=== PATIENT | female | born 1990 | race Caucasian/White ===

== ENCOUNTER 2018-10-03 17:12 | Emergency (ER) | payer SELFPAY ==
[2018-10-03] MEDS ORDERED: Sodium Chloride 0.9% 10 ML Syringe FLUSH PRN (17:39)
--- NOTE | 2018-10-03 17:39 | EDM.PDOC ---
ED HPI GENERAL MEDICAL PROBLEM - General Chief Complaint: Gastrointestinal Problem Stated Complaint: 2MOS VOMITING Time Seen by Provider: 10/03/18 17:19 Source of Information: Reports: Patient, RN Notes Reviewed History Limitations: Reports: No Limitations - History of Present Illness INITIAL COMMENTS - FREE TEXT/NARRATIVE: Patient is a 28 year old female who presents to the ED with her family for the evaluation of nausea/vomiting x 2 days. The patient states that she is around 2 months and her OB doctor is Dr. Lo. She tried to contact her office regarding the nausea but she was not in the office, and was told to come to ED. She does have ODT Zofran at home and this has worked well in the past. She did try to take 8mg ODT Zofran before arrival to ED but it did not stay down. She notes that she has not been able to keep anything for food or liquid down in the past 48 hours. She notes that she feels slight dizziness/ lightheadedness from time to time. She denies having ingested any questionable foods. She does not think she has lost any weight with this. She states that she still does have her appendix and gallbladder. She notes that she has some mild side aches due to the retching from the vomiting. She further denies any sick contacts or any other URI type symptoms like cough, runny nose, shortness of breath, or fever/chills. - Related Data Allergies Allergy/AdvReac Type Severity Reaction Status Date / Time No Known Allergies Allergy Verified 10/03/18 17:23 Home Meds: Home Meds Ondansetron [Zofran ODT] 8 mg PO Q6H PRN 10/03/18 [History] Past Medical History - Past Health History Medical/Surgical History: Denies Medical/Surgical History Social & Family History - Tobacco Use Smoking Status *Q: Never Smoker - Caffeine Use Caffeine Use: Reports: Coffee - Recreational Drug Use Recreational Drug Use: No ED ROS GENERAL - Review of Systems Review Of Systems: See Below Constitutional: Denies: Fever, Chills, Decreased Appetite, Weight Loss HEENT: Reports: No Symptoms Respiratory: Reports: No Symptoms Cardiovascular: Reports: No Symptoms Endocrine: Reports: No Symptoms GI/Abdominal: Reports: Constipation, Nausea, Vomiting. Denies: Diarrhea : Reports: No Symptoms Musculoskeletal: Reports: No Symptoms Skin: Reports: No Symptoms Neurological: Reports: No Symptoms Psychiatric: Reports: No Symptoms Hematologic/Lymphatic: Reports: No Symptoms Immunologic: Reports: No Symptoms ED EXAM - Physical Exam Exam: See Below Exam Limited By: No Limitations General Appearance: Alert, WD/WN, No Apparent Distress Eye Exam: Bilateral Eye: Normal Inspection Ears: Normal External Exam Nose: Normal Inspection Throat/Mouth: Normal Inspection, Normal Lips, Normal Oropharynx (mildy dry oral mucosa), No Airway Compromise Head: Atraumatic, Normocephalic Neck: Normal Inspection Respiratory/Chest: No Respiratory Distress, Lungs Clear, Normal Breath Sounds, No Accessory Muscle Use, Chest Non-Tender Cardiovascular: Normal Peripheral Pulses, Regular Rate, Rhythm, No Edema, No Murmur GI/Abdominal Exam: Normal Bowel Sounds, Soft, Non-Tender, No Distention, No Mass Heart Tones: Not [place] Movement: Not Appreciated Extremities: Normal Inspection, Normal Capillary Refill Neurological: Alert, Oriented, Normal Cognition, No Motor/Sensory Deficits Psychiatric: Normal Affect, Normal Mood Skin Exam: Warm, Dry, Intact, Normal Color, No Rash Course - Vital Signs Last Recorded V/S: Last Vital Signs Temp 98.0 F 10/03/18 17:20 Pulse 92 10/03/18 17:20 Resp 20 10/03/18 17:20 BP 128/82 10/03/18 17:20 Pulse Ox 99 10/03/18 17:20 - Orders/Labs/Meds Orders: Active Orders 24 hr Category Date Time Status Peripheral IV Care [RC] . DIRECTED Care 10/03/18 17:40 Ordered Sodium Chloride 0.9% [Normal Saline] 1,000 ml Med 10/03/18 17:45 Ordered IV ASDIRECTED Sodium Chloride 0.9% [Saline Flush] Med 10/03/18 17:39 Ordered 10 ml FLUSH ASDIRECTED PRN Peripheral IV Insertion Adult [OM.PC] Routine Oth 10/03/18 17:39 Ordered Medication Orders Sodium Chloride (Normal Saline) 1,000 mls @ 999 mls/hr IV ASDIRECTED [place] Last Admin: 10/03/18 17:48 Dose: 999 mls/hr Sodium Chloride (Saline Flush) 10 ml FLUSH ASDIRECTED PRN PRN Reason: Keep Vein Open Last Admin: 10/03/18 17:48 Dose: 10 ml Labs: Laboratory Tests 10/03/18 10/03/18 Range/Units 17:45 17:45 WBC 9.12 (3.98-10.04) K/mm3 RBC 4.61 (3.98-5.22) M/mm3 Hgb 13.4 (11.2-15.7) gm/L Hct 39.3 (34.1-44.9) % MCV 85.2 (79.4-94.8) fl MCH 29.1 (25.6-32.2) pg MCHC 34.1 (32.2-35.5) g/dl RDW Std Deviation 41.7 (36.4-46.3) fL Plt Count 247 (182-369) K/mm3 MPV 9.6 (9.4-12.3) fl Neutrophils % (Manual) 76 H (40-60) % Band Neutrophils % 2 (0-10) % Lymphocytes % (Manual) 13 L (20-40) % Atypical Lymphs % 0 % Monocytes % (Manual) 6 (2-10) % Eosinophils % (Manual) 3 (0.7-5.8) % Basophils % (Manual) 0 L (0.1-1.2) Platelet Estimate Adequate RBC Morph Comment Normal Sodium 137 (136-145) mEq/L Potassium 3.6 (3.5-5.1) mEq/L Chloride 101 (98-107) mEq/L Carbon Dioxide 25 (21-32) mEq/L Anion Gap 14.6 (5-15) BUN 10 (7-18) mg/dL Creatinine 0.7 (0.55-1.02) mg/dL Est Cr Clr Drug Dosing 112.01 mL/min Estimated GFR (MDRD) > 60 (>60) mL/min BUN/Creatinine Ratio 14.3 (14-18) Glucose 96 (74-106) mg/dL Calcium 8.9 (8.5-10.1) mg/dL Total Bilirubin 0.8 (0.2-1.0) mg/dL AST 18 (15-37) U/L ALT 31 (14-59) U/L Alkaline Phosphatase 67 (46-116) U/L Total Protein 8.1 (6.4-8.2) g/dl Albumin 4.0 (3.4-5.0) g/dl Globulin 4.1 gm/dL Albumin/Globulin Ratio 1.0 (1-2) Meds: Medications Generic Name Dose Route Start Last Admin Trade Name Allie PRN Reason Stop Dose Admin Sodium Chloride 1,000 mls @ 999 mls/hr 10/03/18 17:45 10/03/18 17:48 Normal Saline IV 999 mls/hr ASDIRECTED [place] Administration Sodium Chloride 10 ml 10/03/18 17:39 10/03/18 17:48 Saline Flush FLUSH 10 ml ASDIRECTED PRN Administration Keep Vein Open Discontinued Medications Generic Name Dose Route Start Last Admin Trade Name Frekelsie PRN Reason Stop Dose Admin Metoclopramide HCl 10 mg 10/03/18 17:40 10/03/18 17:48 Reglan IVPUSH 10/03/18 17:41 10 mg ONETIME ONE Administration - Re-Assessments/Exams Free Text/Narrative Re-Assessment/Exam: 10/03/18 17:49 Pt presents to the ED for the evaluation of nausea and vomiting in . I have ordered CBC and CMP to evaluate for dehydration, also have ordered 10mg IV reglan for nausea and IV bolus of fluids for initial management. 10/03/18 18:48 Pt was re-assessed at bedside and states that she feels better. I will have the nurse try to give her some oral fluids and crackers to see if she can tolerate these. Plan is to d/c home. 10/03/18 19:30 Pt is feeling better and thinks she will be able to go home okay. I will provide her with a few tabs of Reglan that she will brain picker [facility]. Departure - Departure Time of Disposition: 19:34 Disposition: Home, Self-Care 01 Condition: Fair Clinical Impression: Nausea and vomiting during - Discharge Information *PRESCRIPTION DRUG MONITORING PROGRAM REVIEWED*: No *COPY OF PRESCRIPTION DRUG MONITORING REPORT IN PATIENT GASPER: No Instructions: Nausea and Vomiting, Adult, [id number] Referrals: Karen Lo MD [Primary Care Provider] - Forms: ED Department Discharge Additional Instructions: You have been evaluated in the ED for your nausea/vomiting. You have been given IV fluids and IV medications to alleviate the nausea/ vomiting. Please use your oral Zofran as directed by your OB. You have been provided with a script for Reglan (anti-nausea), [facility] was [facility] to the [facility]. Please use as directed. It may be useful to you to follow-up with your OB doctor if the Zofran is not providing you relief of your nausea, you may need a different medication to help with this. Please return to ED if your symptoms change or worsen. - My Orders Last 24 Hours: My Active Orders 10/03/18 17:39 Sodium Chloride 0.9% [Saline Flush] 10 ml FLUSH ASDIRECTED PRN Peripheral IV Insertion Adult [OM.PC] Routine 10/03/18 17:40 Peripheral IV Care [RC] . DIRECTED 10/03/18 17:45 Sodium Chloride 0.9% [Normal Saline] 1,000 ml IV ASDIRECTED - Assessment/Plan Last 24 Hours: My Active Orders 10/03/18 17:39 Sodium Chloride 0.9% [Saline Flush] 10 ml FLUSH ASDIRECTED PRN Peripheral IV Insertion Adult [OM.PC] Routine 10/03/18 17:40 Peripheral IV Care [RC] . DIRECTED 10/03/18 17:45 Sodium Chloride 0.9% [Normal Saline] 1,000 ml IV ASDIRECTED
[2018-10-03] MEDS ORDERED: Metoclopramide 10 MG/2 ML SDV IVPUSH ONE (17:40)
[2018-10-03] MEDS ORDERED: Sodium Chloride 0.9% 1,000 ML IV SCH (17:45)
== END 2018-10-03 19:45 | disposition home or self-care (01) ==
LOC: JD.ED 17:12
DX: O21.9 Vomiting of pregnancy, unspecified (principal)
CPT/HCPCS: 36415; 80053; 85007; 85027; 96361; 96374; 99283; J2765; J7040; 99284